=== PATIENT | female | born 1970 | race Caucasian/White ===

== ENCOUNTER 2017-02-18 13:14 | Inpatient (IN) | payer MEDICAID ==
[2017-02-18] MEDS ORDERED: Temazepam 15 MG Cap PO PRN (13:36)
[2017-02-18] MEDS ORDERED: Magnesium Hydroxide 400 MG/5 ML Susp 30 ML Cup PO PRN (13:36)
[2017-02-18] MEDS ORDERED: QUEtiapine 25 MG Tab PO PRN (13:40)
[2017-02-18] MEDS ORDERED: Docusate Sodium 100 MG Cap PO PRN (13:40)
[2017-02-18] MEDS ORDERED: Acetaminophen 500 MG Tab PO PRN (13:40)
[2017-02-18] MEDS: Acetaminophen/HYDROcodone 325-5 MG Tab PO PRN ×3 (14:13→21:05)
[2017-02-18] MEDS: HYDROmorphone 2 MG Tab PO PRN ×2 (14:13→17:18)
[2017-02-18] MEDS: Ferrous Sulfate 324 MG Tab.EC PO SCH (17:17)
[2017-02-18] MEDS: traMADol 50 MG Tab PO PRN (19:49)
[2017-02-18] MEDS: atorvaSTATin 20 MG Tab PO SCH (19:49)
[2017-02-18] MEDS: Acetaminophen 325 MG Tab PO PRN (19:58)
[2017-02-18] MEDS: QUEtiapine 25 MG Tab PO SCH (19:59)
[2017-02-19] MEDS: traMADol 50 MG Tab PO PRN ×3 (01:56→16:59)
[2017-02-19] MEDS: Acetaminophen/HYDROcodone 325-5 MG Tab PO PRN (02:59)
[2017-02-19] MEDS: HYDROmorphone 2 MG Tab PO PRN ×4 (05:27→20:39)
[2017-02-19] MEDS: Pantoprazole 40 MG Tab.CR PO SCH (06:42)
[2017-02-19] MEDS ORDERED: DEXTROAMPHETAMINE PO SCH (08:00)
[2017-02-19] MEDS ORDERED: AMPHETAMINE PO SCH (08:00)
[2017-02-19] MEDS: Metoprolol Succinate 25 MG Tab.ER PO SCH (08:49)
[2017-02-19] MEDS: Ferrous Sulfate 324 MG Tab.EC PO SCH ×2 (08:49→16:56)
[2017-02-19] MEDS: Aspirin 81 MG Tab.EC PO SCH (08:49)
[2017-02-19] MEDS: Multivitamin Tab PO SCH (08:49)
[2017-02-19] MEDS: FLUoxetine 20 MG Cap PO SCH (08:50)
[2017-02-19] MEDS: Potassium Chloride 10 MEQ Tab.ER PO SCH (08:50)
--- NOTE | 2017-02-19 11:30 | PCM.HP ---
H&P History of Present Illness - General Date of Service: 02/19/17 Admit Problem/Dx: Admission Diagnosis/Problem Admission Diagnosis/Problem Pain due to total knee replacement Source of Information: Patient History Limitations: Reports: No Limitations - History of Present Illness Initial Comments - Free Text/Narative: Patient admitted swing bed for rehab related to right total knee replacement that was done in [place] on March [address] Barnett. Admitted for PT and OT , pain control. Has had difficulty controlling her pain. Duration of Symptoms: Reports: Day(s): Location: Reports: Lower Extremity, Right Quality: Reports: Throbbing, Other (burning) Severity: Severe Improves with: Reports: Medication Worsens with: Reports: Movement Associated Symptoms: Reports: No Other Symptoms Right Knee Pain Score (Numeric/FACES): 8 - Related Data Allergies/Adverse Reactions: Allergies Allergy/AdvReac Type Severity Reaction Status Date / Time nystatin Allergy Hives Verified 02/18/17 11:56 Home Medications: Home Meds Cyanocobalamin (Vitamin B12) [Vitamin B12] 1,000 mcg IM Q7D 12/16/15 [History] FLUoxetine [PROzac] 60 mg PO DAILY 12/16/15 [History] Furosemide [Lasix] 20 mg PO DAILY PRN 12/16/15 [History] Pantoprazole [ProTONIX] 40 mg PO DAILY 05/18/16 [History] QUEtiapine Fumarate [Seroquel] 50 mg PO BEDTIME 05/18/16 [History] Acetaminophen [Acetaminophen Extra Strength] 1,000 mg PO Q8H PRN 02/18/17 [ History] Aspirin [Halfprin] 243 mg PO DAILY 02/18/17 [History] Dextroamphetamine/Amphetamine [Dextroamp-Amphet ER] 15 mg PO DAILY 02/18/17 [ History] Docusate Sodium 100 mg PO BEDTIME PRN 02/18/17 [History] Ferrous Sulfate 325 mg PO BID 02/18/17 [History] HYDROmorphone [Dilaudid] 2 mg PO Q3H PRN 02/18/17 [History] Metoprolol Succinate [Toprol Xl] 50 mg PO DAILY 02/18/17 [History] Multivitamin [Multi-Vitamin Daily] 1 tab PO DAILY 02/18/17 [History] Potassium Chloride [Klor-Con M20] 20 meq PO DAILY 02/18/17 [History] QUEtiapine Fumarate [Seroquel] 25 mg PO BEDTIME PRN 02/18/17 [History] atorvaSTATin [Lipitor] 40 mg PO BEDTIME 02/18/17 [History] Past Medical History HEENT History: Reports: Impaired Vision Cardiovascular History: Reports: High Cholesterol, Hypertension Respiratory History: Reports: Asthma Other Respiratory History: had asthma attacks when she was younger, has not had one for many years. 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 Psychiatric History: Reports: ADD, Anxiety, Bipolar, Depression Endocrine/Metabolic History: Reports: Obesity/BMI 30+ Hematologic History: Reports: Anemia, B12 Deficiency, Blood Transfusion(s) Immunologic History: Reports: None Oncologic (Cancer) History: Reports: None Dermatologic History: Reports: Eczema, Other (See Below) Other Dermatologic History: when young has not had for long time - Infectious Disease History Infectious Disease History: Reports: Chicken Pox - Past Surgical History Head Surgeries/Procedures: Reports: None HEENT Surgical History: Reports: None GI Surgical History: Reports: Bariatric Procedure, Cholecystectomy Female Surgical History: Reports: Tubal Ligation Musculoskeletal Surgical History: Reports: Other (See Below) Social & Family History - Family History Family Medical History: Noncontributory Cardiac: Reports: Angina, CAD, Heart Failure, High Cholesterol, Hypertension, [place] - Tobacco Use Smoking Status *Q: Current Every Day Smoker Years of Tobacco use: 3 Packs/Tins Daily: 0.5 Used Tobacco, but Quit: No Second Hand Smoke Exposure: Yes - Caffeine Use Caffeine Use: Reports: Coffee, Soda, Tea - Recreational Drug Use Recreational Drug Use: No - Living Situation & Occupation Living situation: Reports: with Significant Other Occupation: Employed H&P Review of Systems - Review of Systems: Review Of Systems: See Below General: Denies: Fever, Chills, Malaise, Weakness HEENT: Reports: No Symptoms Pulmonary: Denies: Shortness of Breath, Wheezing, Cough Cardiovascular: Denies: Chest Pain, Edema, Lightheadedness Gastrointestinal: Denies: Abdominal Pain, Nausea, Vomiting Genitourinary: Reports: No Symptoms Musculoskeletal: Reports: Leg Pain, Joint Pain Skin: Reports: Bruising, Other (incision) Psychiatric: Reports: Anxiety Neurological: Reports: No Symptoms Exam - Exam Exam: See Below - Vital Signs Vital Signs: Last Vital Signs Temp 99.4 F 02/19/17 08:00 Pulse 82 02/19/17 08:49 Resp 18 02/19/17 08:00 BP 126/46 L 02/19/17 08:49 Pulse Ox 94 L 02/19/17 08:00 Weight: 180 lb - Exam General: Alert, Oriented HEENT: Conjunctiva Clear, Mucosa Moist & [place], Posterior Pharynx Clear Neck: Supple Lungs: Clear to Auscultation, Normal Respiratory Effort Cardiovascular: Regular Rate, Regular Rhythm GI/Abdominal Exam: Normal Bowel Sounds, Soft, Non-Tender Extremities: Joint Swelling, Limited Range of Motion, Other (Right knee swollen and bruised. Bandage intact. No redness. ) Skin: Warm, Dry Neuro Extensive - Mental Status: Alert, Oriented x3 Psychiatric: Anxious *Q Meaningful Use (ADM) - VTE *Q VTE Criteria *Q: - Stroke *Q Stroke Criteria *Q: - AMI *Q AMI Criteria *Q: - Problem List (1) Status post total right knee replacement SNOMED Code(s): 8412897426675 ICD Code: Z96.651 - PRESENCE OF RIGHT ARTIFICIAL KNEE JOINT Status: Acute Priority: High Current Visit: Yes Problem List Initiated/Reviewed/Updated: Yes Orders Last 24hrs: Active Orders 24 hr Category Date Time Status Patient Status [ADT] Routine ADT 02/18/17 13:36 Active Oxygen Therapy [RC] .PRN Care 02/18/17 13:36 Active Up With Assistance [RC] .PRN Care 02/18/17 13:36 Active Vital Signs [RC] 0800,2000 Care 02/18/17 13:36 Active OT Evaluation and Treatment [CONS] Routine Cons 02/18/17 13:36 Active PT Evaluation and Treatment [CONS] Routine Cons 02/18/17 13:36 Active Regular Diet [DIET] Diet 02/18/17 Dinner Active Acetaminophen [Tylenol] Med 02/18/17 13:36 Active 650 mg PO Q4H PRN Acetaminophen/oxyCODONE [Percocet 325-5 MG] Med 02/19/17 09:31 Active 1 tab PO Q4H PRN Aspirin [Halfprin] Med 02/19/17 08:00 Active 243 mg PO DAILY Cyanocobalamin (Vitamin B12) [Vitamin B12] Med 02/20/17 08:00 Active 1,000 mcg IM Q7D Dextroamphetamine/Amphetamine [Adderall 20 mg Tablet] Med 02/19/17 08:00 Active 15 mg PO DAILY Docusate Sodium [Colace] Med 02/18/17 13:40 Active 100 mg PO BEDTIME PRN FLUoxetine [PROzac] Med 02/19/17 08:00 Active 60 mg PO DAILY Ferrous Sulfate Med 02/18/17 17:30 Active 324 mg PO BIDMEALS HYDROmorphone [Dilaudid] Med 02/19/17 09:32 Active 2 mg PO Q4H PRN Magnesium Hydroxide [Milk of Magnesia] Med 02/18/17 13:36 Active 30 ml PO Q12H PRN Metoprolol Succinate [Toprol XL] Med 02/19/17 08:00 Active 50 mg PO DAILY Multivitamins [Tab-A-Roberta] Med 02/19/17 08:00 Active 1 tab PO DAILY Pantoprazole [ProTONIX] Med 02/19/17 07:00 Active 40 mg PO 0700 Potassium Chloride [Klor-Con 10] Med 02/19/17 08:00 Active 20 meq PO DAILY QUEtiapine [SEROquel] Med 02/18/17 13:40 Active 25 mg PO BEDTIME PRN QUEtiapine [SEROquel] Med 02/18/17 20:00 Active 50 mg PO BEDTIME atorvaSTATin [Lipitor] Med 02/18/17 20:00 Active 40 mg PO BEDTIME traMADol [Ultram] Med 02/18/17 13:40 Active 0 mg PO Q6H PRN Resuscitation Status Routine Resus Stat 02/18/17 13:36 Ordered Medication Orders Acetaminophen (Tylenol) 650 mg PO Q4H PRN PRN Reason: Pain (Mild 1-3)/fever Last Admin: 02/18/17 19:58 Dose: 650 mg Aspirin (Halfprin) 243 mg PO DAILY [facility] Last Admin: 02/19/17 08:49 Dose: 243 mg Atorvastatin Calcium (Lipitor) 40 mg PO BEDTIME [facility] Last Admin: 02/18/17 19:49 Dose: 40 mg Cyanocobalamin (Vitamin B12) 1,000 mcg IM Q7D [facility] Docusate Sodium (Colace) 100 mg PO BEDTIME PRN PRN Reason: Constipation Ferrous Sulfate (Ferrous Sulfate) 324 mg PO BIDMEALS [facility] Last Admin: 02/19/17 08:49 Dose: 324 mg Admin: 02/18/17 17:17 Dose: 324 mg Fluoxetine HCl (Prozac) 60 mg PO DAILY [facility] Last Admin: 02/19/17 08:50 Dose: 60 mg Hydromorphone HCl (Dilaudid) 2 mg PO Q4H PRN PRN Reason: Pain Last Admin: 02/19/17 10:29 Dose: 2 mg Magnesium Hydroxide (Milk Of Magnesia) 30 ml PO Q12H PRN PRN Reason: Constipation Metoprolol Succinate (Toprol Xl) 50 mg PO DAILY [facility] Last Admin: 02/19/17 08:49 Dose: 50 mg Multivitamins/Minerals/Vitamin C (Tab-A-Roberta) 1 tab PO DAILY [facility] Last Admin: 02/19/17 08:49 Dose: 1 tab Hospital Stock-[ Adderall Xr 15mg Tablet] 15 mg PO DAILY [facility] Oxycodone/Acetaminophen (Percocet 325-5 Mg) 1 tab PO Q4H PRN PRN Reason: Pain Pantoprazole Sodium (Protonix) 40 mg PO 0700 [facility] Last Admin: 02/19/17 06:42 Dose: 40 mg Potassium Chloride (Klor-Con 10) 20 meq PO DAILY [facility] Last Admin: 02/19/17 08:50 Dose: 20 meq Quetiapine Fumarate (Seroquel) 25 mg PO BEDTIME PRN PRN Reason: mood Quetiapine Fumarate (Seroquel) 50 mg PO BEDTIME [facility] Last Admin: 02/18/17 19:59 Dose: 50 mg Tramadol HCl (Ultram) 0 mg PO Q6H PRN PRN Reason: Pain Last Admin: 02/19/17 08:44 Dose: 100 mg Admin: 02/19/17 01:56 Dose: 100 mg Admin: 02/18/17 19:49 Dose: 50 mg Assessment/Plan Comment:: Admit to Dr. Portillo for rehab with PT and OT and pain control s/p knee replacement. Is on Dilaudid, hydrocodone, and tramadol for pain.
[2017-02-19] MEDS: Acetaminophen/oxyCODONE 325-5 MG Tab PO PRN ×3 (13:12→23:53)
[2017-02-19] MEDS: DEXTROAMPHETAMINE PO SCH (13:52)
[2017-02-19] MEDS: AMPHETAMINE PO SCH (13:52)
[2017-02-19] MEDS: QUEtiapine 25 MG Tab PO SCH (20:39)
[2017-02-19] MEDS: atorvaSTATin 20 MG Tab PO SCH (20:39)
[2017-02-20] MEDS: traMADol 50 MG Tab PO PRN ×3 (01:16→22:55)
[2017-02-20] MEDS: HYDROmorphone 2 MG Tab PO PRN ×4 (04:44→18:39)
[2017-02-20] MEDS: Pantoprazole 40 MG Tab.CR PO SCH (06:14)
[2017-02-20] MEDS: Acetaminophen/oxyCODONE 325-5 MG Tab PO PRN ×3 (06:20→19:59)
[2017-02-20] MEDS ORDERED: Cyanocobalamin (Vitamin B12) 1,000 MCG/ML SDV IM SCH (08:00)
[2017-02-20] MEDS: AMPHETAMINE PO SCH (08:29)
[2017-02-20] MEDS: Ferrous Sulfate 324 MG Tab.EC PO SCH ×2 (08:29→17:41)
[2017-02-20] MEDS: DEXTROAMPHETAMINE PO SCH (08:29)
[2017-02-20] MEDS: Multivitamin Tab PO SCH (08:30)
[2017-02-20] MEDS: Potassium Chloride 10 MEQ Tab.ER PO SCH (08:30)
[2017-02-20] MEDS: Aspirin 81 MG Tab.EC PO SCH (08:30)
[2017-02-20] MEDS: Metoprolol Succinate 25 MG Tab.ER PO SCH (08:31)
[2017-02-20] MEDS: FLUoxetine 20 MG Cap PO SCH (08:31)
[2017-02-20] MEDS: Acetaminophen 325 MG Tab PO PRN (17:41)
[2017-02-20] MEDS: atorvaSTATin 20 MG Tab PO SCH (19:53)
[2017-02-20] MEDS: QUEtiapine 25 MG Tab PO SCH (19:53)
[2017-02-21] MEDS: HYDROmorphone 2 MG Tab PO PRN ×3 (01:26→17:41)
[2017-02-21] MEDS: Acetaminophen/oxyCODONE 325-5 MG Tab PO PRN ×4 (02:32→23:16)
[2017-02-21] MEDS: traMADol 50 MG Tab PO PRN ×3 (05:33→20:21)
[2017-02-21] MEDS: Pantoprazole 40 MG Tab.CR PO SCH (06:45)
[2017-02-21] MEDS: FLUoxetine 20 MG Cap PO SCH (08:12)
[2017-02-21] MEDS: Multivitamin Tab PO SCH (08:13)
[2017-02-21] MEDS: Ferrous Sulfate 324 MG Tab.EC PO SCH ×2 (08:13→17:41)
[2017-02-21] MEDS: Aspirin 81 MG Tab.EC PO SCH (08:13)
[2017-02-21] MEDS: Metoprolol Succinate 25 MG Tab.ER PO SCH (08:14)
[2017-02-21] MEDS: AMPHETAMINE PO SCH (08:14)
[2017-02-21] MEDS: DEXTROAMPHETAMINE PO SCH (08:14)
[2017-02-21] MEDS: Potassium Chloride 10 MEQ Tab.ER PO SCH (08:14)
[2017-02-21] MEDS: atorvaSTATin 20 MG Tab PO SCH (20:19)
[2017-02-21] MEDS: QUEtiapine 25 MG Tab PO SCH (20:19)
[2017-02-22] MEDS: HYDROmorphone 2 MG Tab PO PRN ×4 (01:43→23:41)
[2017-02-22] MEDS: traMADol 50 MG Tab PO PRN ×3 (03:32→17:56)
[2017-02-22] MEDS: Acetaminophen/oxyCODONE 325-5 MG Tab PO PRN ×3 (05:00→20:17)
[2017-02-22] MEDS: Aspirin 81 MG Tab.EC PO SCH (07:45)
[2017-02-22] MEDS: Multivitamin Tab PO SCH (07:45)
[2017-02-22] MEDS: Pantoprazole 40 MG Tab.CR PO SCH (07:45)
[2017-02-22] MEDS: Ferrous Sulfate 324 MG Tab.EC PO SCH ×2 (07:45→17:56)
[2017-02-22] MEDS: FLUoxetine 20 MG Cap PO SCH (07:46)
[2017-02-22] MEDS: Potassium Chloride 10 MEQ Tab.ER PO SCH (07:46)
[2017-02-22] MEDS: AMPHETAMINE PO SCH (07:47)
[2017-02-22] MEDS: DEXTROAMPHETAMINE PO SCH (07:47)
[2017-02-22] MEDS: Metoprolol Succinate 25 MG Tab.ER PO SCH (07:47)
[2017-02-22] MEDS: atorvaSTATin 20 MG Tab PO SCH (19:35)
[2017-02-22] MEDS: QUEtiapine 25 MG Tab PO SCH (19:35)
[2017-02-23] MEDS: Acetaminophen/oxyCODONE 325-5 MG Tab PO PRN ×4 (02:02→18:48)
[2017-02-23] MEDS: traMADol 50 MG Tab PO PRN ×3 (05:36→20:38)
[2017-02-23] MEDS: Pantoprazole 40 MG Tab.CR PO SCH (06:37)
[2017-02-23] MEDS: Potassium Chloride 10 MEQ Tab.ER PO SCH (08:34)
[2017-02-23] MEDS: Metoprolol Succinate 25 MG Tab.ER PO SCH (08:35)
[2017-02-23] MEDS: Ferrous Sulfate 324 MG Tab.EC PO SCH ×2 (08:36→17:06)
[2017-02-23] MEDS: AMPHETAMINE PO SCH (08:36)
[2017-02-23] MEDS: DEXTROAMPHETAMINE PO SCH (08:36)
[2017-02-23] MEDS: Multivitamin Tab PO SCH (08:36)
[2017-02-23] MEDS: FLUoxetine 20 MG Cap PO SCH (08:37)
[2017-02-23] MEDS: Aspirin 81 MG Tab.EC PO SCH (08:40)
[2017-02-23] MEDS: HYDROmorphone 2 MG Tab PO PRN ×3 (09:40→22:35)
[2017-02-23] MEDS: atorvaSTATin 20 MG Tab PO SCH (19:35)
[2017-02-23] MEDS: QUEtiapine 25 MG Tab PO SCH (19:35)
[2017-02-24] MEDS: Acetaminophen/oxyCODONE 325-5 MG Tab PO PRN ×2 (01:02→10:01)
[2017-02-24] MEDS: traMADol 50 MG Tab PO PRN ×2 (04:27→11:52)
[2017-02-24] MEDS: HYDROmorphone 2 MG Tab PO PRN (06:31)
[2017-02-24] MEDS: Pantoprazole 40 MG Tab.CR PO SCH (06:31)
[2017-02-24] MEDS: AMPHETAMINE PO SCH (07:56)
[2017-02-24] MEDS: Metoprolol Succinate 25 MG Tab.ER PO SCH (07:56)
[2017-02-24] MEDS: DEXTROAMPHETAMINE PO SCH (07:56)
[2017-02-24] MEDS: Multivitamin Tab PO SCH (07:57)
[2017-02-24] MEDS: Aspirin 81 MG Tab.EC PO SCH (07:57)
[2017-02-24] MEDS: Ferrous Sulfate 324 MG Tab.EC PO SCH (07:57)
[2017-02-24] MEDS: Potassium Chloride 10 MEQ Tab.ER PO SCH (07:57)
[2017-02-24 07:58] VITALS: BP 151/76
[2017-02-24] MEDS: FLUoxetine 20 MG Cap PO SCH (07:58)
--- NOTE | 2017-02-26 12:09 | PCM.DCSUM1 ---
Discharge Summary - Hospital Course Free Text/Narrative:: Patient admitted here swing bed for ongoing physical therapy and pain control follow a right total knee replacement in [place] by Dr. Barnett. Patient did well through surgery, incision clean and dry on admit. Had been requiring multiple IV pain meds following surgery but admitted here on oral meds. - Discharge Data Discharge Date: 02/24/17 Discharge Disposition: Home, Self-Care 01 Condition: Good - Discharge Diagnosis/Problem(s) (1) Status post total right knee replacement SNOMED Code(s): 8044345638460 ICD Code: Z96.651 - PRESENCE OF RIGHT ARTIFICIAL KNEE JOINT Status: Acute Priority: High - Patient Summary/Data Complications: none Consults: Consultations 02/18/17 13:36 OT Evaluation and Treatment [CONS] Routine PT Evaluation and Treatment [CONS] Routine Hospital Course: Patient did continue to complain of severe pain after admission that she did not feel was covered well with Dilaudid, NOrco and Tramadol every 6 hours. Was switched to Dilaudid every 4 hours on day 1 and Percocet ordered in replacement of the [place]. Continued to complain of ongoing severe pain. Was up and ambulating and doing well with PT and then independently by day of discharge. Incision was clean and dry, vyes intact, mild swelling and bruising but overall, looks like it is healing well. No other complications or concerns during her swing bed stay. - Patient Instructions Diet: Usual Diet as Tolerated Activity: As Tolerated Notify Provider of: Fever, Increased Pain, Swelling and Redness - Discharge Plan Prescriptions/Med Rec: traMADol [Ultram] 1 - 2 mg PO Q6H PRN #60 tablet PRN Reason: Pain Home Medications: Home Meds Cyanocobalamin (Vitamin B12) [Vitamin B12] 1,000 mcg IM Q7D 12/16/15 [History] FLUoxetine [PROzac] 60 mg PO DAILY 12/16/15 [History] Furosemide [Lasix] 20 mg PO DAILY PRN 12/16/15 [History] Pantoprazole [ProTONIX] 40 mg PO DAILY 05/18/16 [History] QUEtiapine Fumarate [Seroquel] 50 mg PO BEDTIME 05/18/16 [History] Acetaminophen [Acetaminophen Extra Strength] 1,000 mg PO Q8H PRN 02/18/17 [ History] Aspirin [Halfprin] 243 mg PO DAILY 02/18/17 [History] Dextroamphetamine/Amphetamine [Dextroamp-Amphet ER] 15 mg PO DAILY 02/18/17 [ History] Docusate Sodium 100 mg PO BEDTIME PRN 02/18/17 [History] Ferrous Sulfate 325 mg PO BID 02/18/17 [History] HYDROmorphone [Dilaudid] 2 mg PO Q3H PRN 02/18/17 [History] Metoprolol Succinate [Toprol Xl] 50 mg PO DAILY 02/18/17 [History] Multivitamin [Multi-Vitamin Daily] 1 tab PO DAILY 02/18/17 [History] Potassium Chloride [Klor-Con M20] 20 meq PO DAILY 02/18/17 [History] QUEtiapine Fumarate [Seroquel] 25 mg PO BEDTIME PRN 02/18/17 [History] atorvaSTATin [Lipitor] 40 mg PO BEDTIME 02/18/17 [History] traMADol [Ultram] 1 - 2 mg PO Q6H PRN #60 tablet 02/24/17 [Rx] Referrals: Bob Portillo MD [Primary Care Provider] - (See Dr. Portillo in 2-3 weeks for hospital recheck) Kel Pacheco PA-C [Physician Trimmer Operator] - (Keep scheduled appointment with Kel Pacheco on Feb 27 at 940 am.) - General Info Date of Service: 02/24/17 Admission Dx/Problem (Free Text: Admission Diagnosis/Problem Admission Diagnosis/Problem Pain due to total knee replacement Functional Status: Reports: Tolerating Diet, Ambulating. Denies: Pain Controlled - Review of Systems General: Denies: Fever, Weakness, Fatigue HEENT: Denies: Headaches, Sinus Congestion, Sore Throat Pulmonary: Denies: Shortness of Breath, Cough Cardiovascular: Denies: Chest Pain Gastrointestinal: Denies: Abdominal Pain, Nausea, Vomiting Genitourinary: Reports: No Symptoms Musculoskeletal: Reports: Leg Pain, Joint Pain, Joint Swelling Neurological: Reports: No Symptoms - Patient Data Vitals - Most Recent: Last Vital Signs Temp 96.8 F 02/24/17 07:42 Pulse 63 02/24/17 07:56 Resp 16 02/24/17 07:42 BP 151/76 H 02/24/17 07:56 Pulse Ox 97 02/24/17 07:42 Weight - Most Recent: 180 lb Med Orders - Current: Current Medications Discontinued Medications Acetaminophen (Tylenol) 650 mg PO Q4H PRN PRN Reason: Pain (Mild 1-3)/fever Last Admin: 02/20/17 17:41 Dose: 650 mg Hydrocodone Bitart/Acetaminophen ([place] 325-5 Mg) 1 - 2 tab PO Q6H PRN PRN Reason: Pain Last Admin: 02/19/17 02:59 Dose: 2 tab Amphetamine/Dextroamphetamine (Adderall Xr) 15 mg PO DAILY [facility] Last Admin: 02/24/17 07:56 Dose: 15 mg Aspirin (Halfprin) 243 mg PO DAILY [facility] Last Admin: 02/24/17 07:57 Dose: 243 mg Atorvastatin Calcium (Lipitor) 40 mg PO BEDTIME [facility] Last Admin: 02/23/17 19:35 Dose: 40 mg Cyanocobalamin (Vitamin B12) 1,000 mcg IM Q7D [facility] Last Admin: 02/20/17 08:39 Dose: 1,000 mcg Docusate Sodium (Colace) 100 mg PO BEDTIME PRN PRN Reason: Constipation Ferrous Sulfate (Ferrous Sulfate) 324 mg PO BIDMEALS [facility] Last Admin: 02/24/17 07:57 Dose: 324 mg Fluoxetine HCl (Prozac) 60 mg PO DAILY [facility] Last Admin: 02/24/17 07:58 Dose: 60 mg Hydromorphone HCl (Dilaudid) 2 mg PO Q6H PRN PRN Reason: Pain Last Admin: 02/19/17 05:27 Dose: 2 mg Hydromorphone HCl (Dilaudid) 2 mg PO Q4H PRN PRN Reason: Pain Last Admin: 02/24/17 06:31 Dose: 2 mg Magnesium Hydroxide (Milk Of Magnesia) 30 ml PO Q12H PRN PRN Reason: Constipation Metoprolol Succinate (Toprol Xl) 50 mg PO DAILY [facility] Last Admin: 02/24/17 07:56 Dose: 50 mg Multivitamins/Minerals/Vitamin C (Tab-A-Roberta) 1 tab PO DAILY [facility] Last Admin: 02/24/17 07:57 Dose: 1 tab Hospital Stock-[ Adderall Xr 15mg Tablet] 15 mg PO DAILY [facility] Last Admin: 02/19/17 13:53 Dose: Not Given Oxycodone/Acetaminophen (Percocet 325-5 Mg) 1 tab PO Q4H PRN PRN Reason: Pain Last Admin: 02/24/17 10:01 Dose: 1 tab Pantoprazole Sodium (Protonix) 40 mg PO 0700 [facility] Last Admin: 02/24/17 06:31 Dose: 40 mg Potassium Chloride (Klor-Con 10) 20 meq PO DAILY [facility] Last Admin: 02/24/17 07:57 Dose: 20 meq Quetiapine Fumarate (Seroquel) 25 mg PO BEDTIME PRN PRN Reason: mood Quetiapine Fumarate (Seroquel) 50 mg PO BEDTIME [facility] Last Admin: 02/23/17 19:35 Dose: 50 mg Tramadol HCl (Ultram) 0 mg PO Q6H PRN PRN Reason: Pain Last Admin: 02/24/17 11:52 Dose: 100 mg - Exam General: Reports: Alert, Oriented HEENT: Reports: Mucous Membr. Moist/[place] Neck: Reports: Supple Lungs: Reports: Clear to Auscultation, Normal Respiratory Effort Cardiovascular: Reports: Regular Rate, Regular Rhythm GI/Abdominal Exam: Normal Bowel Sounds, Soft, Non-Tender Skin: Reports: Warm, Dry Wound/Incisions: Reports: Healing Well Neurological: Reports: No New Focal Deficit Psy/Mental Status: Reports: Alert, Normal Affect, Normal Mood *Q Meaningful Use (DIS) - VTE *Q VTE Criteria *Q: - Stroke *Q Stroke Criteria *Q: - AMI *Q AMI Criteria *Q:
== END 2017-02-24 13:15 | disposition home or self-care (01) | DRG 561 ==
LOC: CC.MS 13:14 → UNDOADMIN 13:14 → CC.MS 13:36
PROVIDERS: ADMIT Family Medicine; ATTEND Family Medicine
DX: T84.84XA Pain due to internal orthopedic prosthetic devices, implants and grafts, initial encounter (principal); Z47.1 Aftercare following joint replacement surgery; M25.561 Pain in right knee; Z96.651 Presence of right artificial knee joint; Z79.899 Other long term (current) drug therapy; E78.00 Pure hypercholesterolemia, unspecified; I10 Essential (primary) hypertension; J45.909 Unspecified asthma, uncomplicated; F98.8 Other specified behavioral and emotional disorders with onset usually occurring in childhood and adolescence; F41.8 Other specified anxiety disorders; D64.9 Anemia, unspecified; E66.9 Obesity, unspecified; Z68.29 Body mass index [BMI] 29.0-29.9, adult; F17.210 Nicotine dependence, cigarettes, uncomplicated; Z79.82 Long term (current) use of aspirin
CPT/HCPCS: 97110-GP; 97161-GP; A9270-GY; J3420